=== PATIENT | male | born 1985 | race African-American/Black ===

== ENCOUNTER 2018-05-09 05:14 | Emergency (ER) | payer BC ==
[~2018-05-09] VITALS: Ht 177.8 cm; Wt 111.1 kg
[2018-05-09 05:17] VITALS: BP 176/111
[2018-05-09] MEDS ORDERED: AMOX500T PO (05:20)
[2018-05-09] MEDS ORDERED: IBUP-1060 PO (05:20)
[2018-05-09] MEDS ORDERED: HYDR-3164 PO (05:20)
[2018-05-09] MEDS ORDERED: SULF1TAB24 PO (05:30)
[2018-05-09] MEDS ORDERED: CEPH-264 PO (05:30)
[2018-05-09] MEDS ORDERED: LIDOCAINE 1% Multi-Dose 20 ML VIAL. ONE (05:32)
--- NOTE | 2018-05-09 05:47 | PHYS DOC ---
Past Medical History Past Medical History: No Pertinent History Past Surgical History: No Surgical History Alcohol Use: None Drug Use: None Adult General Chief Complaint Chief Complaint: DENTAL PROBLEM HPI HPI Patient is a 32 year old male who presents with facial abscess and swelling. Patient has pain and swelling with erythema and local warmth to touch over the left side of his face near the corner of his mouth. He has had symptoms over the last 48 hours. He describes what he thought was a pimple only it continued to get worse rather than resolving. He does not have a prior history of similar symptoms. He has no dental pain. No neck stiffness. No difficulty with swallowing. Review of Systems Review of Systems Constitutional: Denies fever or chills Eyes: Denies change in visual acuity HENT: Denies nasal congestion or sore throat Respiratory: Denies cough or shortness of breath Musculoskeletal: Denies Integument: Denies rash or skin lesions Neurologic: Denies headache All other systems were reviewed and found to be within normal limits, except as documented in this note. Current Medications Current Medications Current Medications Medications (Trade) Dose Ordered Sig/Arturo Start Time Stop Time Status Last Admin Dose Admin Cephalexin HCl (Keflex) 500 mg 1X ONCE 05/09/18 06:00 05/09/18 06:01 Lidocaine HCl (Lidocaine 1% 20ml Vial) 20 ml STK-MED ONCE 05/09/18 05:32 05/09/18 05:34 DC Trimethoprim/ Sulfamethoxazole (Bactrim Ds) 1 tab 1X ONCE 05/09/18 06:00 05/09/18 06:01 Allergies Allergies Allergies Coded Allergies Type Severity Reaction Last Updated Verified No Known Drug Allergies 05/09/18 No Physical Exam Physical Exam Constitutional: Well developed, well nourished, no acute distress, non-toxic appearance HENT: Normocephalic, area of moderate swelling and edema over the left side of the face near the mandible with a centralized area of induration and possible fluctuance and a central pustule. Examination of the oral pharynx is normal. Posterior oral pharynx is clear., bilateral external ears normal, oropharynx moist, no oral exudates, nose normal. Eyes: PERRLA, EOMI, conjunctiva normal Cardiovascular:Heart rate regular rhythm, no murmur Lungs & Thorax: Bilateral breath sounds clear to auscultation Skin: Warm, dry, no erythema, no rash Neurologic: Alert and oriented X 3 Psychologic: Affect normal Current Patient Data Vital Signs Vital Signs Date Time Temp Pulse Resp B/P (MAP) Pulse Ox O2 Delivery O2 Flow Rate FiO2 05/09/18 05:17 98.4 127 20 176/111 (132) 99 Room Air 98.4 EKG EKG [] Radiology/Procedures Radiology/Procedures [] Course & Med Decision Making Course & Med Decision Making Pertinent Labs and Imaging studies reviewed. (See chart for details) Patient is evaluated in the emergency department for possible facial abscess. Attempt was made to do needle aspiration of the abscess since the area was on his face. See the procedure note below. All totally, I was able to aspirate a moderate amount of pre-fluid. Following this, the patient was discharged home. He was placed on ibuprofen, [place], Bactrim, and Keflex. Patient was advised to follow-up at [facility] or with oral maxillofacial surgery if his symptoms did not improve. Opiate precautions were discussed. Procedure note: needle aspiration of abscess on face. Area was cleansed with Betadine. Local anesthesia was provided with approximately 0.5 mils of 1% lidocaine. An 18-gauge needle was then used to probe the area of induration. There were no pockets of fluid penetrated and no return. Because the lesion is on the patient's face, incision and drainage is not desirable. Following failed needle aspiration. The small pustule on the left side of the face was unroofed and gentle pressure was applied from inside the patient's cheek. With this technique, there was a moderate amount of purulent material returned. The patient tolerated very well. Bleeding was controlled. Dragon Disclaimer Dragon Disclaimer This electronic medical record was generated, in whole or in part, using a voice recognition dictation system. Departure Departure Impression: Primary Impression: Facial abscess Disposition: 01 HOME, SELF-CARE Condition: GOOD Referrals: NO PCP (PCP) Patient Instructions: Abscess, Pain Medicine Instructions, [id number] Scripts Cephalexin (KEFLEX) 500 Mg Capsule 500 MG PO QID for 10 Days, #40 CAP Prov: CLAUDIA SEWLEL DO 05/09/18 Sulfamethoxazole/Trimethoprim (BACTRIM DS TABLET) 1 Each Tablet 1 TAB PO BID, #20 TAB Prov: CLAUDIA SEWELL DO 05/09/18 Hydrocodone/Apap 5-325 (NORCO 5-325 TABLET) 1 Each Tablet 1-2 EACH PO PRN Q6HRS PRN for SEVERE PAIN, #15 as needed for pain Prov: CLAUDIA SEWELL DO 05/09/18 Ibuprofen (IBUPROFEN) 800 Mg Tablet 800 MG PO PRN TID PRN for PAIN, #30 TAB take with food or milk to avoid upsetting stomach Prov: CLAUDIA SEWELL DO 05/09/18 CLAUDIA SEWELL DO May 09, 2018 05:47
[2018-05-09] MEDS ORDERED: LIDOCAINE 1% Multi-Dose 20 ML VIAL. INJ ONE (06:00)
[2018-05-09] MEDS ORDERED: SMZ/TMP 800/160MG TABLET. PO ONE (06:00)
[2018-05-09] MEDS ORDERED: CEPHALEXIN 250 MG CAPSULE. PO ONE (06:00)
== END 2018-05-09 05:45 | disposition home or self-care (01) ==
LOC: ER 05:14
DX: L02.01 Cutaneous abscess of face (principal)
CPT/HCPCS: 10160; 99284-25